=== PATIENT | female | born 1950 | race Asian ===

== ENCOUNTER 2017-07-22 00:08 | Day surgery (SDC) | payer OTHER ==
[2017-07-22] VITALS (8 sets, daily range): BP systolic 98–128; BP diastolic 61–94
[~2017-07-22] VITALS: Ht 160 cm; Wt 58.5 kg
[~2017-07-22 00:08] MED LIST: PER PO; PRO25 PO
[2017-07-22] MEDS ORDERED: LIDOCAINE/SOD BICARB 8.4% SYR ID ONE (06:30)
[2017-07-22] MEDS ORDERED: MIDAZOLAM 2 MG/2 ML VIAL IVP PRN (06:30)
[2017-07-22] MEDS ORDERED: NORMOSOL R SOLN(*) 1000 ML BAG 1,000 ML IV PRN (06:30)
--- NOTE | 2017-07-22 08:14 | Short(Outpt) Discharge Summary ---
Discharge Summary Reason for Hosp/Final Diag: (1) Colon cancer screening Status: Chronic Hospital Course & Plan: Colonoscopy with polypectomy x3 completed without problems. Departure Discharge to: Home, Self Care Discharge Instructions Home Meds No Active Prescriptions or Reported Meds Diet: Regular Activity: As Tolerated Special Instructions: Your colonoscopy was completed without problems and your prep was excellent. I removed 3 polyps from your colon. These were sent to the pathologist for analysis. My office will call you in the next week to let you know what the polyps are and when your next colonoscopy should be (either 3 or 5 years from now depending on the pathology results). HONEY DONATO MD Jul 22, 2017 08:14
== END 2017-07-22 09:50 | disposition home or self-care (01) ==
LOC: OR 00:08
PROVIDERS: ATTEND Surgery
DX: Z12.11 Encounter for screening for malignant neoplasm of colon (principal); D12.2 Benign neoplasm of ascending colon; D12.5 Benign neoplasm of sigmoid colon
CPT/HCPCS: 88305

== ENCOUNTER → 2018-01-26 | Outpatient (CLI) | payer OTHER ==
--- NOTE | 2018-01-26 08:50 | RADIOLOGY IMAGING REPORT ---
FACILITY: [facility] PATIENT NAME: Annabel Barcenas : 1950 MR: [id number] V: [id number] EXAM DATE: ORDERING PHYSICIAN: SHEILA DARBY TECHNOLOGIST: Location: [facility] - [place] Patient: Annabel Barcenas : 1950 Visit/Account:[id number] Date of Sevice: 01/26/2018 Technique: ABDOMEN COMPLETE HISTORY: Right upper quadrant pain Comparison: None Technique: Multiple grayscale, color and Doppler sonographic images were obtained for a complete ultr asound of the abdomen. Findings: Liver is normal in size, echotexture and measures 11.2 cm in length. There are lobulations noted wit hin the capsule. There is normal hepatopedal portal venous flow. The spleen is enlarged in size maximally measuring 14.8 cm. Gallbladder wall thickness is 2 mm with no evidence of shadowing stone or sludge within the gallbladd er lumen. Negative sonographic Brandon's sign reported by the technologist. Common duct measures 3 mm in maximum diameter with no evidence of shadowing stone. Imaged portions of the pancreas are unremarkable. Abdominal aorta and IVC are patent and unremarkable. The kidneys are normal in size, contour, and echotexture with the right kidney measuring 9.3 cm x 4. 5 cm x 5.2 cm and the left kidney measuring 11.0 cm x 4.5 cm x 5.4 cm. Incidentally noted is an a nechoic parapelvic cyst within the right kidney. IMPRESSION: 1. Splenomegaly. 2. Lobulated capsule of the liver which is nonspecific; however, can be seen in hepatocellular disea se although the echotexture of the liver appears normal. Report Dictated By: Josiah Villeda DO at 01/26/2018 8:35 AM Report E-Signed By: Josiah Villeda DO at 01/26/2018 8:45 AM WSN:[id number]
--- NOTE | 2018-01-26 10:04 | RADIOLOGY IMAGING REPORT ---
FACILITY: [facility] - [place] PATIENT NAME: Annabel Barcenas : 1950 MR: [id number] V: [id number] EXAM DATE: ORDERING PHYSICIAN: SHEILA DARBY TECHNOLOGIST: Location: [facility] - [place] Patient: Annabel Barcenas : 1950 Visit/Account:[id number] Date of Sevice: 01/26/2018 DEXA Scan Clinical history: screening. Comparison: None. LUMBAR SPINE: The bone mineral density (BMD) measured from L1-L4 correlates with a Z-score of -0.9 and a T-score of -2.7 which is osteoporotic as defined by the World Health Organization. The corresponding risk of f racture in the lumbar spine is significantly increased compared with a young adult reference populati on. HIP: Bone mineral density (BMD) measured in the Left total hip region correlates with a Z-score of -0.6 and a T-score of -1.9. The T-score of the femoral neck is -2.0. The lower of the two T sco res is osteopenic which is defined as defined by the World Health Organization. The corresponding risk of fracture in the hip is moderately increased compared with a young adult reference population. Bone mineral density (BMD) measured in the Left Femoral Neck region measures 0.764 g/cm?. Impression: 1. Lumbar spine: Osteoporotic. 2. Left Total Hip: Osteopenic. The next DEXA scan of this patient should include the following sites: L1-L4 and Left hip. FRAX? WHO Fracture Risk Assessment Tool link: <http://www.shef.ac.uk/FRAX/tool.jsp?locationValue=9> PLEASE NOTE: 1) The World Health Organization defines low BMD as follows: T-score Normal > -1 Osteopenia < -1 and > -2.5 Osteoporosis < -2.5 without fractures Established osteoporosis < -2.5 with fractures 2) In general, you may wish to consider: Diagnosis Treatment Follow-up DEXA Normal BMD Prevention 2-3 years Osteopenia Prevention/therapy 1-2 years Osteoporosis Therapy Yearly 3) Fracture risk estimated from the T-score is more accurate for vertebral fractures (often spontane ous) than for hip fractures. Report Dictated By: Dixon Mathews MD at 01/26/2018 9:58 AM Report E-Signed By: Dixon Mathews MD at 01/26/2018 10:00 AM WSN:PRINCESS
== END ==
LOC: US 01:26
PROVIDERS: ATTEND Nurse Practitioner Psychiatric/Mental Health
DX: Z00.00 Encounter for general adult medical examination without abnormal findings (principal); M85.88 Other specified disorders of bone density and structure, other site; M81.0 Age-related osteoporosis without current pathological fracture
CPT/HCPCS: 76700; 77080